=== PATIENT | male | born 1955 | race Caucasian/White ===

== ENCOUNTER → 2019-11-29 16:36 | Outpatient (CLI) | payer MEDICARE, OTHER, SELFPAY ==
--- NOTE | 2019-11-29 16:55 | EKG12_ITS ---
Test Reason : PRE OP Blood Pressure : / mmHG Vent. Rate : 060 BPM Atrial Rate : 060 BPM P-R Int : 168 ms QRS Dur : 096 ms QT Int : 446 ms P-R-T Axes : 058 -01 026 degrees QTc Int : 446 ms Normal sinus rhythm Normal ECG Confirmed by MIKEY GARCIA, KIMBERLY ([id number]), news videotape editor DAKOTA KHAN ([id number]) on 12/03/2019 12:48:01 PM Referred By: Fernando Dwyer Confirmed By:KIMBERLY JENSEN MD
== END ==
PROVIDERS: Family Provider Family Medicine; PCP Family Medicine; Referring Provider Urology; Visit Provider Urology
DX: Z01.812 Encounter for preprocedural laboratory examination (principal)
CPT/HCPCS: 93005

== ENCOUNTER 2023-08-16 11:29 | Day surgery (SDC) | payer MEDICARE, OTHER, SELFPAY ==
--- NOTE | 2023-08-16 11:48 | PCM.HP.STD ---
HPI - General General Date of Service: 08/16/23 Chief Complaint: Obstructing left proximal ureteral calculi HPI Narrative GWYN GARRISON, is a 68 M who presents to my office today with nausea vomiting and severe pain on the left side he has obstructing stone. He said this for several days now and no improvement in symptoms saran proceed with a cystoscopy and left stent placement and then we will plan for lithotripsy at a separate setting. PFSH Home Medications bupropion HCl (smoking deter) 150 mg tablet,12 hr sustained-release(smoking deterrent) 150 mg PO DAILY 10/13/16 [History Last Taken Unknown] paroxetine HCl 10 mg tablet (Paxil) 10 mg PO DAILY 10/13/16 [History Last Taken Unknown] valacyclovir 1 gram tablet 1,000 mg PO PRN PRN COLD SORE 10/13/16 [History Last Taken Unknown] ciprofloxacin HCl 500 mg tablet 500 mg PO BID ##6 10/15/16 [Rx Last Taken Unknown] hydrocodone 5 mg-acetaminophen 300 mg tablet (Vicodin) 1 tab PO Q6H PRN PRN Pain #14 tabs 10/15/16 [Rx Last Taken Unknown] Allergy/AdvReac Type Severity Reaction Status Date / Time No Known Allergies Allergy Verified 10/13/16 14:22 Social History Smoking Status: Former smoker
--- NOTE | 2023-08-16 11:51 | DCINST_ITS ---
Discharge Instructions Diet Discharge Diet: No restrictions Activity Discharge Activity: Return to Normal Activity and May Not Drive (while taking narcotic pain medications.) Dressing / Incision Call your doctor if you observe: Fever of 101 or Higher Follow Up Care Please Follow Up With: Fernando Dwyer MD When: Call [phone] for an appointment Test Results: Test results from this visit will be discussed in further detail at your follow- up appointment, if applicable. Discharge Plan Admission Primary Reason for Your Visit: stent Attending Provider: Fernando Dwyer Primary Care Provider: Carlo Viveros Discharge Orders/Prescriptions Prescriptions: Continued paroxetine HCl [Paxil] 10 MG tablet 10 mg PO DAILY Patient Comments: ANXIETY valacyclovir 1,000 MG tablet 1,000 mg PO PRN PRN (Reason: COLD SORE) bupropion HCl (smoking deter) 150 MG tablet extended release 12 hr 150 mg PO DAILY ciprofloxacin HCl 500 MG tablet 500 mg PO BID Qty: 6 0RF hydrocodone-acetaminophen [Vicodin] 1 EACH tablet 1 tab PO Q6H PRN PRN (Reason: Pain) Qty: 14 0RF Rx Instructions: Referrals / Follow Up: Carlo Viveros DO [Primary Care Provider] - Disposition Disposition (needs filled in before D/C Order can be placed): Home, Self Care
[2023-08-16 11:59] VITALS: BP 151/70; PULSE 56; RESP 16; TEMP 36.4; O2SAT 98; BMI 31.1
[2023-08-16] MEDS: Cefazolin 2 GM in 0.9% Normal Saline (100mL Bag) 100 ML IV (12:17)
--- NOTE | 2023-08-16 12:35 | PCM.OPRPT ---
Report of Operation Pre-Operative Diagnosis: Obstructing left ureteral calculi Post-Operative Diagnosis: The same Surgery/Procedure Performed:: Cystoscopy and left stent placement and retrograde pyelogram Description of Surgical Findings:: Patient was taken back to the operating room after induction of general anesthesia, the patient was placed in dorsolithotomy position. The urethra and genitals were prepped and draped in usual sterile fashion. Using a 21 Belgian rigid cystourethroscope the entire length of the urethra was normal then went into the bladder. Identified the trigone the left and right ureteral orifice. I then cannulated the Left ureteral orifice and advanced a wire up into the kidney. I then backloaded a 5 Belgian open ended catheter over the wire and injected contrast to delineate the anatomy. After the retrograde was performed I then used fluoroscopic images and guidance to advanced a wire up into the kidney and over the 0.038 glidewire I advanced a 6 Belgian by 26 cm double pigtail stent. I then pulled the 0.038 Glidewire off and the stent coiled in the kidney bladder good position. The bladder was then drained. We confirmed the position of the stent by fluoroscopy. Patient anesthetic was reversed and was taken back to the PACU in good condition. Surgeon: Fernando Dwyer Type of Anesthesia: MAC Drains: stent left Estimated Blood Loss (mL): 0 Admit VTE Documentation VTE Present on Admission: No VTE Mechan Device Prophylaxis: SCD's VTE Pharm Prophylaxis ordered?: No
[2023-08-16 12:42] VITALS: BP 133/70; BP 151/70; PULSE 60; RESP 18; TEMP 36.4; O2SAT 96
[2023-08-16 12:45] VITALS: BP 129/73; BP 151/70; PULSE 60; RESP 18; O2SAT 98
[2023-08-16 12:52] VITALS: BP 135/73; BP 151/70; PULSE 64; RESP 18; O2SAT 98
[2023-08-16 12:55] VITALS: BP 134/70; BP 151/70; PULSE 58; RESP 18; TEMP 36.6; O2SAT 95
[2023-08-16 13:27] VITALS: BP 151/70
== END 2023-08-16 13:30 | disposition home or self-care (01) ==
LOC: SDC 11:36 → AC 11:38
PROVIDERS: Referring Provider Urology; Visit Provider Urology
PROC: (CPT 52332; principal; 2023-08-16 16:45)
DX: N20.1 Calculus of ureter (principal); I10 Essential (primary) hypertension; G47.30 Sleep apnea, unspecified; Z87.891 Personal history of nicotine dependence
CPT/HCPCS: 52332; 00910; 76000; J7120; C1769; C2617

== ENCOUNTER 2023-10-23 17:05 | Inpatient (IN) | payer MEDICARE, OTHER, SELFPAY ==
[2023-10-23 17:37] VITALS: BP 114/64; PULSE 84; RESP 17; TEMP 37.3; O2SAT 96; BMI 26.9
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
[2023-10-23] MEDS: Atorvastatin Calcium 10 MG Tablet PO (20:23)
[2023-10-23] MEDS: Methocarbamol 750 MG Tablet PO (20:24)
[2023-10-23] MEDS: MELATONIN 3 MG TABLET 6 MG PO (20:24)
[2023-10-23] MEDS: QUEtiapine 25 MG Tablet 50 MG PO (20:24)
[2023-10-23 20:39] VITALS: BP 129/50; PULSE 93; RESP 16; TEMP 36.3; O2SAT 92
[2023-10-23] MEDS: Arthritis Pain Compound 60 CLICK TUBE TOPICAL (21:47)
[2023-10-24] MEDS: HYDROcodone Bitartrate/Apap 5/325 Tablet PO ×4 (03:14→20:18)
[2023-10-24 06:00] LABS: Hematocrit 34.9 % (40-54); Hemoglobin 10.8 g/dL (13.0-16.5); Mean Corp Hgb Conc 30.9 g/dL (32-36); Mean Corpuscular Hgb 28.1 pg (27.0-32.0); Mean Corpuscular Volume 90.6 fL (80-94); Mean Platelet Vol. 10.3 fl (6.2-12.0); Platelet Count 677 K/mm3 (150-450); RBC Distribution Width CV 13.2 % (11.6-14.6); RBC Distribution Width SD 43.4 fl (35.1-43.9); Red Blood Count 3.85 M/mm3 (4.6-6.2); White Blood Count 11.2 K/mm3 (4.4-11.0)
[2023-10-24 06:25] LABS: ALB/GLOB Ratio 0.7 RATIO (0.9-2.4); AST(SGOT) 23 U/L (15-37); Alanine Aminotransfer ALT/SGPT 27 U/L (16-61); Albumin, Serum 2.9 g/dL (3.2-5.0); Alkaline Phosphatase 550 U/L (45-117); Anion Gap 4 (5-15); BUN 28 mg/dL (7-18); BUN/Creat Ratio 35.9 RATIO (10-20); Calcium,Total 8.8 mg/dL (8.5-10.1); Chloride 108 mmol/L (98-107); Creatinine, Serum 0.78 mg/dL (0.70-1.30); EST Glomerular Filtration Rate 104 mL/min (>60); Est Glom Filt Rate - Afr Amer 126 mL/min (>60); Estimated Creatinine Clearance 77.68 ml/min; Globulin 4.3 g/dL (2.2-4.2); Glucose 115 mg/dL (74-106); Magnesium 2.3 mg/dL (1.6-2.6); Potassium 4.3 mmol/L (3.5-5.1); Protein, Total 7.2 g/dL (6.4-8.2); Sodium Level 140 mmol/L (136-145)
[2023-10-24] MEDS: Methocarbamol 750 MG Tablet PO ×3 (06:39→20:16)
[2023-10-24 07:21] VITALS: BP 119/63; PULSE 84; RESP 16; TEMP 34.8; O2SAT 94
[2023-10-24] MEDS: Venlafaxine XR 37.5 MG Capsule PO (07:50)
[2023-10-24] MEDS: Pantoprazole Sodium 40 MG Tablet PO (07:50)
[2023-10-24] MEDS: Losartan Potassium 50 MG Tablet PO (07:50)
[2023-10-24] MEDS: Senna/Docusate Sodium 1 Tablet 2 TABLET PO ×2 (07:51→20:17)
[2023-10-24] MEDS: Polyethylene Glycol 3350 17 GM PACKET PO (07:52)
[2023-10-24 08:30] VITALS: O2SAT 94
[2023-10-24] MEDS: Arthritis Pain Compound 60 CLICK TUBE TOPICAL ×2 (09:57→20:15)
--- NOTE | 2023-10-24 16:39 | NURSING ---
Dr. Almendarez's office contacted to see if they would oversee his orthopedic care while patient is here and information sent over via fax per their request. Dr. Almendarez is currently out of town and awaiting call back.
[2023-10-24] MEDS: NYSTATIN 500,000 UNIT/5 ML UDC 500000 UNIT PO ×2 (18:12→20:18)
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
[2023-10-24] MEDS: QUEtiapine 25 MG Tablet 50 MG PO (20:16)
[2023-10-24] MEDS: Atorvastatin Calcium 10 MG Tablet PO (20:16)
[2023-10-24] MEDS: MELATONIN 3 MG TABLET 6 MG PO (20:17)
[2023-10-24 21:59] VITALS: BP 120/64; PULSE 80; RESP 17; TEMP 36.7; O2SAT 96
[2023-10-25] MEDS: HYDROcodone Bitartrate/Apap 5/325 Tablet PO ×3 (02:59→21:06)
[2023-10-25] MEDS: Methocarbamol 750 MG Tablet PO ×3 (05:45→21:02)
[2023-10-25 07:10] VITALS: O2SAT 93
[2023-10-25 07:46] VITALS: BP 124/63; PULSE 71; RESP 71; TEMP 36.5; O2SAT 15
[2023-10-25] MEDS: Losartan Potassium 50 MG Tablet PO (08:01)
[2023-10-25] MEDS: Pantoprazole Sodium 40 MG Tablet PO (08:01)
[2023-10-25] MEDS: Venlafaxine XR 37.5 MG Capsule PO (08:01)
[2023-10-25] MEDS: NYSTATIN 500,000 UNIT/5 ML UDC 500000 UNIT PO ×4 (08:01→21:03)
[2023-10-25] MEDS: Senna/Docusate Sodium 1 Tablet 2 TABLET PO ×2 (08:02→21:03)
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
[2023-10-25] MEDS: Arthritis Pain Compound 60 CLICK TUBE TOPICAL ×2 (09:11→21:01)
[2023-10-25] MEDS: Atorvastatin Calcium 10 MG Tablet PO (21:02)
[2023-10-25] MEDS: QUEtiapine 25 MG Tablet 75 MG PO (21:02)
[2023-10-25] MEDS: MELATONIN 3 MG TABLET 6 MG PO (21:03)
[2023-10-25 21:32] VITALS: BP 129/51; PULSE 79; RESP 16; TEMP 36.8; O2SAT 91
[2023-10-26] MEDS: Methocarbamol 750 MG Tablet PO ×3 (05:40→21:35)
[2023-10-26] MEDS: Senna/Docusate Sodium 1 Tablet 2 TABLET PO (07:53)
[2023-10-26] MEDS: Losartan Potassium 50 MG Tablet PO (07:54)
[2023-10-26] MEDS: Venlafaxine XR 37.5 MG Capsule PO (07:54)
[2023-10-26] MEDS: Pantoprazole Sodium 40 MG Tablet PO (07:54)
[2023-10-26] MEDS: HYDROcodone Bitartrate/Apap 5/325 Tablet PO ×2 (07:54→21:35)
[2023-10-26] MEDS: NYSTATIN 500,000 UNIT/5 ML UDC 500000 UNIT PO ×4 (07:58→21:34)
[2023-10-26] MEDS: Arthritis Pain Compound 60 CLICK TUBE TOPICAL ×2 (07:58→21:35)
[2023-10-26 09:17] VITALS: BP 153/61; PULSE 71; RESP 17; TEMP 36.9; O2SAT 93
[2023-10-26] MEDS: Oxycodone/Apap 5/325 Tablet PO ×2 (12:07→17:30)
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
[2023-10-26 19:36] VITALS: BP 110/53; PULSE 75; RESP 18; TEMP 36.5; O2SAT 93
[2023-10-26 21:30] VITALS: PULSE 75; RESP 18; O2SAT 93
[2023-10-26] MEDS: MELATONIN 3 MG TABLET 6 MG PO (21:34)
[2023-10-26] MEDS: Polyethylene Glycol 3350 17 GM PACKET PO (21:35)
[2023-10-26] MEDS: Atorvastatin Calcium 10 MG Tablet PO (21:35)
[2023-10-26] MEDS: QUEtiapine 25 MG Tablet 75 MG PO (21:35)
[2023-10-27] MEDS: HYDROcodone Bitartrate/Apap 5/325 Tablet PO ×3 (05:29→22:24)
[2023-10-27] MEDS: Methocarbamol 750 MG Tablet PO ×3 (05:29→21:27)
--- NOTE | 2023-10-27 05:41 | NURSING ---
pt noted to be disoriented this am, reoriented to time and year. urine was noted to be marvel colored last hs and is tea colored this am. pt encouraged to drink and did drink a glass of water with his am medication
[2023-10-27 06:14] VITALS: O2SAT 94
[2023-10-27 07:54] VITALS: BP 127/64; PULSE 81; RESP 16; TEMP 36.3; O2SAT 95
--- NOTE | 2023-10-27 08:46 | CASEMGMT ---
Social Work IDT met with patient, SO and dtr for Team meeting. Discussed patient's progress in PT/OT/ST/SN. Educated to Medicare approval of 18 days with DC 11/10. Pt is unable to maintain NWB on leg and transfers are slideboard. Pt's goal is to return home with SO. SO does work full-time, but unsure about home at time of DC d/t to physical and cognitive abilities. Briefly explained the options would be home with assist or SNF for continued therapy under Medicare coverage. Dtr did express some concern with home as pt only has half bath on first floor and bed/full bath is on the second floor. PT recommending ramp to enter home. Dtr agreed. SW will continue to follow for DC planning. Will ReTeam next week. Maria Eugenia Russell MASTER [employer]
[2023-10-27] MEDS: Arthritis Pain Compound 60 CLICK TUBE TOPICAL ×2 (09:50→21:26)
[2023-10-27] MEDS: Losartan Potassium 50 MG Tablet PO (09:51)
[2023-10-27] MEDS: Venlafaxine XR 37.5 MG Capsule PO (09:51)
[2023-10-27] MEDS: Senna/Docusate Sodium 1 Tablet 2 TABLET PO ×2 (09:51→21:25)
[2023-10-27] MEDS: Pantoprazole Sodium 40 MG Tablet PO (09:51)
[2023-10-27] MEDS: NYSTATIN 500,000 UNIT/5 ML UDC 500000 UNIT PO ×4 (09:51→21:44)
[2023-10-27] MEDS: Polyethylene Glycol 3350 17 GM PACKET PO ×2 (09:51→21:25)
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
[2023-10-27] MEDS: Oxycodone/Apap 5/325 Tablet PO (11:17)
[2023-10-27] MEDS: hydrOXYzine 10 MG Tablet PO (12:13)
[2023-10-27] MEDS: Psyllium 1 PACKET PO (13:36)
[2023-10-27 21:00] VITALS: BP 110/58; PULSE 73; RESP 16; TEMP 37.3; O2SAT 98
[2023-10-27] MEDS: QUEtiapine 25 MG Tablet 75 MG PO (21:25)
[2023-10-27] MEDS: MELATONIN 3 MG TABLET 6 MG PO (21:26)
[2023-10-27] MEDS: Atorvastatin Calcium 10 MG Tablet PO (21:26)
[2023-10-28 06:00] VITALS: BMI 26.8
[2023-10-28] MEDS: HYDROcodone Bitartrate/Apap 5/325 Tablet PO ×3 (06:22→22:08)
[2023-10-28] MEDS: Methocarbamol 750 MG Tablet PO ×3 (06:23→22:07)
[2023-10-28] MEDS: Magnesium Hydroxide 30 ML UDC PO (06:23)
[2023-10-28] MEDS: Azelastine HCl NASAL.SRY 1 SPRAY NASAL (08:48)
[2023-10-28] MEDS: Senna/Docusate Sodium 1 Tablet 2 TABLET PO ×2 (08:50→22:08)
[2023-10-28] MEDS: Venlafaxine XR 37.5 MG Capsule PO (08:50)
[2023-10-28] MEDS: Arthritis Pain Compound 60 CLICK TUBE TOPICAL ×2 (08:50→22:09)
[2023-10-28] MEDS: Pantoprazole Sodium 40 MG Tablet PO (08:50)
[2023-10-28] MEDS: NYSTATIN 500,000 UNIT/5 ML UDC 500000 UNIT PO ×4 (08:50→22:09)
[2023-10-28] MEDS: Polyethylene Glycol 3350 17 GM PACKET PO ×2 (08:51→22:09)
[2023-10-28] MEDS: Losartan Potassium 50 MG Tablet PO (08:51)
[2023-10-28] MEDS: Fluticasone 0.05% 1 SPRAY NASAL.SRY NASAL (08:51)
[2023-10-28] MEDS: Psyllium 1 PACKET PO (08:51)
[2023-10-28 09:19] VITALS: BP 129/52; PULSE 58; RESP 17; TEMP 35.7; O2SAT 94
--- NOTE | 2023-10-28 13:03 | NURSING ---
20 johnathon removed and 1 suture pt tolerated well and resting.
[2023-10-28 22:00] VITALS: BP 106/49; PULSE 83; RESP 20; TEMP 36.8; O2SAT 92
[2023-10-28] MEDS: Atorvastatin Calcium 10 MG Tablet PO (22:07)
[2023-10-28] MEDS: QUEtiapine 25 MG Tablet 75 MG PO (22:07)
[2023-10-28] MEDS: MELATONIN 3 MG TABLET 6 MG PO (22:10)
[2023-10-29] MEDS: Methocarbamol 750 MG Tablet PO ×3 (06:28→20:24)
[2023-10-29] MEDS: HYDROcodone Bitartrate/Apap 5/325 Tablet PO ×3 (06:36→20:25)
[2023-10-29 07:46] VITALS: BP 136/53; PULSE 61; RESP 16; TEMP 36.8; O2SAT 94
[2023-10-29] MEDS: NYSTATIN 500,000 UNIT/5 ML UDC 500000 UNIT PO ×4 (08:38→20:26)
[2023-10-29] MEDS: Psyllium 1 PACKET PO (08:38)
[2023-10-29] MEDS: Venlafaxine XR 37.5 MG Capsule PO (08:39)
[2023-10-29] MEDS: Azelastine HCl NASAL.SRY 1 SPRAY NASAL (08:39)
[2023-10-29] MEDS: Fluticasone 0.05% 1 SPRAY NASAL.SRY NASAL (08:39)
[2023-10-29] MEDS: Senna/Docusate Sodium 1 Tablet 2 TABLET PO ×2 (08:39→20:24)
[2023-10-29] MEDS: Arthritis Pain Compound 60 CLICK TUBE TOPICAL ×2 (08:40→20:24)
[2023-10-29] MEDS: Polyethylene Glycol 3350 17 GM PACKET PO ×2 (08:40→20:24)
[2023-10-29] MEDS: Pantoprazole Sodium 40 MG Tablet PO (08:40)
[2023-10-29] MEDS: Losartan Potassium 50 MG Tablet PO (08:41)
[2023-10-29 11:47] VITALS: O2SAT 96
[2023-10-29] MEDS: Oxycodone/Apap 5/325 Tablet PO (11:57)
[2023-10-29] MEDS: QUEtiapine 25 MG Tablet 75 MG PO (20:24)
[2023-10-29] MEDS: MELATONIN 3 MG TABLET 6 MG PO (20:24)
[2023-10-29] MEDS: Atorvastatin Calcium 10 MG Tablet PO (20:24)
[2023-10-29 20:30] VITALS: BP 120/54; PULSE 70; RESP 16; RESP 18; TEMP 36.7; O2SAT 92
[2023-10-30] MEDS: HYDROcodone Bitartrate/Apap 5/325 Tablet PO ×3 (05:46→22:04)
[2023-10-30] MEDS: Methocarbamol 750 MG Tablet PO ×3 (05:46→22:03)
[2023-10-30 09:01] VITALS: BP 128/61; PULSE 72; RESP 18; TEMP 36.3; O2SAT 96
[2023-10-30] MEDS: Fluticasone 0.05% 1 SPRAY NASAL.SRY NASAL (09:19)
[2023-10-30] MEDS: Azelastine HCl NASAL.SRY 1 SPRAY NASAL (09:20)
[2023-10-30] MEDS: Psyllium 1 PACKET PO (09:20)
[2023-10-30] MEDS: Polyethylene Glycol 3350 17 GM PACKET PO ×2 (09:20→22:03)
[2023-10-30] MEDS: Arthritis Pain Compound 60 CLICK TUBE TOPICAL ×2 (09:20→22:05)
[2023-10-30] MEDS: NYSTATIN 500,000 UNIT/5 ML UDC 500000 UNIT PO ×4 (09:21→22:03)
[2023-10-30] MEDS: Venlafaxine XR 37.5 MG Capsule PO (09:22)
[2023-10-30] MEDS: Pantoprazole Sodium 40 MG Tablet PO (09:22)
[2023-10-30] MEDS: Senna/Docusate Sodium 1 Tablet 2 TABLET PO ×2 (09:22→22:04)
[2023-10-30] MEDS: Losartan Potassium 50 MG Tablet PO (09:23)
[2023-10-30] MEDS: Oxycodone/Apap 5/325 Tablet PO ×2 (13:46→17:49)
[2023-10-30 22:00] VITALS: BP 122/59; PULSE 66; RESP 18; TEMP 36.7; O2SAT 93
[2023-10-30] MEDS: QUEtiapine 25 MG Tablet 75 MG PO (22:03)
[2023-10-30] MEDS: MELATONIN 3 MG TABLET 6 MG PO (22:03)
[2023-10-30] MEDS: Atorvastatin Calcium 10 MG Tablet PO (22:04)
[2023-10-31] MEDS: Methocarbamol 750 MG Tablet PO ×3 (05:55→21:32)
[2023-10-31] MEDS: HYDROcodone Bitartrate/Apap 5/325 Tablet PO ×3 (05:55→21:46)
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
[2023-10-31 08:00] VITALS: BP 138/65; PULSE 66; RESP 16; TEMP 36.9; O2SAT 95
[2023-10-31] MEDS: Arthritis Pain Compound 60 CLICK TUBE TOPICAL ×2 (09:47→21:31)
[2023-10-31] MEDS: Gabapentin 100 MG Capsule PO ×3 (09:47→17:18)
[2023-10-31] MEDS: Azelastine HCl NASAL.SRY 1 SPRAY NASAL (09:47)
[2023-10-31] MEDS: Venlafaxine XR 37.5 MG Capsule PO (09:48)
[2023-10-31] MEDS: Pantoprazole Sodium 40 MG Tablet PO (09:48)
[2023-10-31] MEDS: Polyethylene Glycol 3350 17 GM PACKET PO ×2 (09:48→21:32)
[2023-10-31] MEDS: Senna/Docusate Sodium 1 Tablet 2 TABLET PO ×2 (09:48→21:31)
[2023-10-31] MEDS: Psyllium 1 PACKET PO (09:48)
[2023-10-31] MEDS: Losartan Potassium 50 MG Tablet PO (09:48)
[2023-10-31] MEDS: NYSTATIN 500,000 UNIT/5 ML UDC 500000 UNIT PO ×4 (09:49→21:31)
[2023-10-31] MEDS: Fluticasone 0.05% 1 SPRAY NASAL.SRY NASAL (09:49)
[2023-10-31 10:00] VITALS: RESP 16; O2SAT 94
--- NOTE | 2023-10-31 11:05 | NURSING ---
received call for Carol at Dr Snell's office. Dr Almendarez has agreed to take pt as a patient.
[2023-10-31] MEDS: Oxycodone/Apap 5/325 Tablet PO (13:56)
[2023-10-31 21:20] VITALS: BP 123/60; PULSE 78; RESP 20; TEMP 36.8; O2SAT 94; O2SAT 97
[2023-10-31] MEDS: QUEtiapine 25 MG Tablet 75 MG PO (21:31)
[2023-10-31] MEDS: Atorvastatin Calcium 10 MG Tablet PO (21:32)
[2023-10-31] MEDS: MELATONIN 3 MG TABLET 6 MG PO (21:32)
[2023-11-01] MEDS: Methocarbamol 750 MG Tablet PO ×3 (05:54→21:59)
[2023-11-01] MEDS: HYDROcodone Bitartrate/Apap 5/325 Tablet PO ×2 (05:55→22:06)
[2023-11-01 07:49] VITALS: BP 119/53; PULSE 76; RESP 17; TEMP 36.7; O2SAT 97
[2023-11-01] MEDS: Pantoprazole Sodium 40 MG Tablet PO (08:12)
[2023-11-01] MEDS: Polyethylene Glycol 3350 17 GM PACKET PO (08:12)
[2023-11-01] MEDS: Fluticasone 0.05% 1 SPRAY NASAL.SRY NASAL (08:12)
[2023-11-01] MEDS: Psyllium 1 PACKET PO (08:12)
[2023-11-01] MEDS: NYSTATIN 500,000 UNIT/5 ML UDC 500000 UNIT PO ×4 (08:12→22:00)
[2023-11-01] MEDS: Senna/Docusate Sodium 1 Tablet 2 TABLET PO ×2 (08:12→21:59)
[2023-11-01] MEDS: Losartan Potassium 50 MG Tablet PO (08:12)
[2023-11-01] MEDS: Gabapentin 100 MG Capsule PO ×3 (08:12→16:52)
[2023-11-01] MEDS: Venlafaxine XR 37.5 MG Capsule PO (08:12)
[2023-11-01] MEDS: Arthritis Pain Compound 60 CLICK TUBE TOPICAL ×2 (08:13→21:58)
[2023-11-01] MEDS: Azelastine HCl NASAL.SRY 1 SPRAY NASAL (08:13)
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
[2023-11-01] MEDS: Oxycodone/Apap 5/325 Tablet PO (11:44)
[2023-11-01] MEDS: hydrOXYzine 10 MG Tablet PO (11:50)
[2023-11-01] MEDS: Tamsulosin HCl 0.4 MG Capsule PO (16:52)
[2023-11-01 20:23] VITALS: BP 117/56; PULSE 72; RESP 20; TEMP 36.7; O2SAT 92
[2023-11-01] MEDS: Atorvastatin Calcium 10 MG Tablet PO (21:58)
[2023-11-01] MEDS: MELATONIN 3 MG TABLET 6 MG PO (21:59)
[2023-11-01] MEDS: QUEtiapine 25 MG Tablet 75 MG PO (22:01)
[2023-11-02] MEDS: Methocarbamol 750 MG Tablet PO ×3 (05:26→21:47)
[2023-11-02] MEDS: Oxycodone/Apap 5/325 Tablet PO (05:27)
[2023-11-02] MEDS: Azelastine HCl NASAL.SRY 1 SPRAY NASAL (08:16)
[2023-11-02] MEDS: Fluticasone 0.05% 1 SPRAY NASAL.SRY NASAL (08:16)
[2023-11-02] MEDS: Losartan Potassium 50 MG Tablet PO (08:17)
[2023-11-02] MEDS: Pantoprazole Sodium 40 MG Tablet PO (08:17)
[2023-11-02] MEDS: Gabapentin 100 MG Capsule PO ×3 (08:17→18:13)
[2023-11-02] MEDS: Venlafaxine XR 37.5 MG Capsule PO (08:17)
[2023-11-02] MEDS: NYSTATIN 500,000 UNIT/5 ML UDC 500000 UNIT PO ×4 (08:17→21:47)
[2023-11-02] MEDS: Arthritis Pain Compound 60 CLICK TUBE TOPICAL ×2 (08:19→21:48)
[2023-11-02 08:59] VITALS: BP 113/54; PULSE 65; RESP 18; TEMP 37; O2SAT 94
[2023-11-02] MEDS: HYDROcodone Bitartrate/Apap 5/325 Tablet PO ×2 (13:56→21:47)
[2023-11-02] MEDS: Tamsulosin HCl 0.4 MG Capsule PO (18:09)
[2023-11-02 19:18] VITALS: BP 108/65; PULSE 68; RESP 14; TEMP 37.3; O2SAT 94
[2023-11-02] MEDS: Atorvastatin Calcium 10 MG Tablet PO (21:47)
[2023-11-02] MEDS: QUEtiapine 25 MG Tablet 75 MG PO (21:47)
[2023-11-02] MEDS: MELATONIN 3 MG TABLET 6 MG PO (21:47)
[2023-11-03] MEDS: Methocarbamol 750 MG Tablet PO ×3 (05:12→21:05)
[2023-11-03] MEDS: Psyllium 1 PACKET PO (08:18)
[2023-11-03] MEDS: Azelastine HCl NASAL.SRY 1 SPRAY NASAL (08:18)
[2023-11-03] MEDS: Fluticasone 0.05% 1 SPRAY NASAL.SRY NASAL (08:18)
[2023-11-03] MEDS: Arthritis Pain Compound 60 CLICK TUBE TOPICAL ×2 (08:18→21:06)
[2023-11-03] MEDS: Gabapentin 100 MG Capsule PO ×3 (08:18→16:48)
[2023-11-03] MEDS: Losartan Potassium 50 MG Tablet PO (08:19)
[2023-11-03] MEDS: Pantoprazole Sodium 40 MG Tablet PO (08:19)
[2023-11-03] MEDS: Venlafaxine XR 37.5 MG Capsule PO (08:19)
[2023-11-03] MEDS: NYSTATIN 500,000 UNIT/5 ML UDC 500000 UNIT PO ×4 (08:19→21:06)
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
--- NOTE | 2023-11-03 08:53 | CASEMGMT ---
Social Work IDT met with patient, SO and dtr for Team meeting. Discussed patient's progress in PT/OT/ST/SN. Educated to Medicare approval of 16 days with DC 11/10. IDT recommending SNF at DC. Inquired to pt and family of DC plans. Family and pt agreeable to SNF for continued therapy care. SW provided printed list of skilled SNF list with quality and resource data via [employer]. Family to decide on choices and notify this worker. SW educated to SNF Medicare benefit. SW will continue to follow. Plan: DC to SNF, skilled 11/10 MICHAEL Walker
[2023-11-03 09:45] VITALS: BP 119/63; PULSE 81; RESP 16; TEMP 37; O2SAT 93
[2023-11-03] MEDS: Oxycodone/Apap 5/325 Tablet PO ×2 (11:12→19:38)
[2023-11-03] MEDS: HYDROcodone Bitartrate/Apap 5/325 Tablet PO ×2 (13:52→21:05)
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
--- NOTE | 2023-11-03 16:06 | NURSING ---
Liss for orthopedic Dr Alston office to cancel appt for 11/04 at 1030.
[2023-11-03] MEDS: Tamsulosin HCl 0.4 MG Capsule PO (16:48)
[2023-11-03] MEDS: MELATONIN 3 MG TABLET 6 MG PO (21:05)
[2023-11-03] MEDS: Atorvastatin Calcium 10 MG Tablet PO (21:05)
[2023-11-03] MEDS: QUEtiapine 25 MG Tablet 75 MG PO (21:05)
[2023-11-03 21:23] VITALS: BP 112/60; PULSE 83; RESP 20; TEMP 36.2; O2SAT 96
[2023-11-03 22:00] VITALS: PULSE 83; RESP 20; O2SAT 96
[2023-11-04 06:00] VITALS: BMI 26.8
[2023-11-04] MEDS: Methocarbamol 750 MG Tablet PO ×3 (06:17→22:09)
[2023-11-04] MEDS: Gabapentin 100 MG Capsule PO ×3 (08:56→18:23)
[2023-11-04] MEDS: Arthritis Pain Compound 60 CLICK TUBE TOPICAL ×2 (08:56→22:09)
[2023-11-04] MEDS: Azelastine HCl NASAL.SRY 1 SPRAY NASAL (08:58)
[2023-11-04] MEDS: Psyllium 1 PACKET PO (08:59)
[2023-11-04] MEDS: Venlafaxine XR 37.5 MG Capsule PO (08:59)
[2023-11-04] MEDS: Fluticasone 0.05% 1 SPRAY NASAL.SRY NASAL (08:59)
[2023-11-04] MEDS: Losartan Potassium 50 MG Tablet PO (08:59)
[2023-11-04] MEDS: Pantoprazole Sodium 40 MG Tablet PO (09:00)
[2023-11-04] MEDS: Oxycodone/Apap 5/325 Tablet PO ×3 (09:00→19:21)
[2023-11-04] MEDS: NYSTATIN 500,000 UNIT/5 ML UDC 500000 UNIT PO ×4 (09:00→22:09)
[2023-11-04 10:00] VITALS: BP 136/52; PULSE 61; RESP 16; TEMP 36.5; O2SAT 93
[2023-11-04] MEDS: Tamsulosin HCl 0.4 MG Capsule PO (18:24)
[2023-11-04 20:00] VITALS: BP 112/48; PULSE 76; RESP 17; TEMP 35.6; O2SAT 95
[2023-11-04] MEDS: QUEtiapine 25 MG Tablet 75 MG PO (22:09)
[2023-11-04] MEDS: MELATONIN 3 MG TABLET 6 MG PO (22:09)
[2023-11-04] MEDS: HYDROcodone Bitartrate/Apap 5/325 Tablet PO (22:09)
[2023-11-04] MEDS: Atorvastatin Calcium 10 MG Tablet PO (22:09)
[2023-11-05] MEDS: Methocarbamol 750 MG Tablet PO ×3 (06:48→21:10)
[2023-11-05 08:00] VITALS: BP 125/51; PULSE 60; RESP 18; TEMP 36.4; O2SAT 95
[2023-11-05] MEDS: Arthritis Pain Compound 60 CLICK TUBE TOPICAL ×2 (08:03→21:08)
[2023-11-05] MEDS: Psyllium 1 PACKET PO (08:03)
[2023-11-05] MEDS: Gabapentin 100 MG Capsule PO ×3 (08:03→16:25)
[2023-11-05] MEDS: Fluticasone 0.05% 1 SPRAY NASAL.SRY NASAL (08:04)
[2023-11-05] MEDS: Azelastine HCl NASAL.SRY 1 SPRAY NASAL (08:04)
[2023-11-05] MEDS: Losartan Potassium 50 MG Tablet PO (08:06)
[2023-11-05] MEDS: Pantoprazole Sodium 40 MG Tablet PO (08:06)
[2023-11-05] MEDS: NYSTATIN 500,000 UNIT/5 ML UDC 500000 UNIT PO ×4 (08:07→21:08)
[2023-11-05] MEDS: Venlafaxine XR 37.5 MG Capsule PO (08:08)
[2023-11-05] MEDS: HYDROcodone Bitartrate/Apap 5/325 Tablet PO ×2 (12:10→21:08)
[2023-11-05] MEDS: Tamsulosin HCl 0.4 MG Capsule PO (16:25)
[2023-11-05] MEDS: Senna/Docusate Sodium 1 Tablet 2 TABLET PO (21:10)
[2023-11-05] MEDS: Atorvastatin Calcium 10 MG Tablet PO (21:10)
[2023-11-05] MEDS: QUEtiapine 25 MG Tablet 75 MG PO (21:11)
[2023-11-05] MEDS: MELATONIN 3 MG TABLET 6 MG PO (21:12)
[2023-11-05 21:30] VITALS: BP 143/69; PULSE 67; RESP 16; TEMP 36.2; O2SAT 93
[2023-11-06] MEDS: Methocarbamol 750 MG Tablet PO ×3 (05:28→21:47)
[2023-11-06 08:25] VITALS: BP 131/60; PULSE 69; RESP 16; TEMP 36.7; O2SAT 92
[2023-11-06] MEDS: Gabapentin 100 MG Capsule PO ×3 (08:36→17:14)
[2023-11-06] MEDS: Arthritis Pain Compound 60 CLICK TUBE TOPICAL ×2 (08:36→21:46)
[2023-11-06] MEDS: Azelastine HCl NASAL.SRY 1 SPRAY NASAL (08:37)
[2023-11-06] MEDS: Losartan Potassium 50 MG Tablet PO (08:38)
[2023-11-06] MEDS: Venlafaxine XR 37.5 MG Capsule PO (08:38)
[2023-11-06] MEDS: Psyllium 1 PACKET PO (08:38)
[2023-11-06] MEDS: Fluticasone 0.05% 1 SPRAY NASAL.SRY NASAL (08:38)
[2023-11-06] MEDS: Pantoprazole Sodium 40 MG Tablet PO (08:39)
[2023-11-06] MEDS: Oxycodone/Apap 5/325 Tablet PO (08:39)
[2023-11-06] MEDS: NYSTATIN 500,000 UNIT/5 ML UDC 500000 UNIT PO ×2 (08:39→13:51)
[2023-11-06] MEDS: Senna/Docusate Sodium 1 Tablet 2 TABLET PO ×2 (08:39→21:48)
[2023-11-06] MEDS: HYDROcodone Bitartrate/Apap 5/325 Tablet PO ×2 (12:28→21:47)
[2023-11-06] MEDS: Tamsulosin HCl 0.4 MG Capsule PO (17:14)
[2023-11-06 20:51] VITALS: BP 140/60; PULSE 74; RESP 17; TEMP 37.2; O2SAT 94
[2023-11-06] MEDS: MELATONIN 3 MG TABLET 6 MG PO (21:47)
[2023-11-06] MEDS: Atorvastatin Calcium 10 MG Tablet PO (21:47)
[2023-11-06] MEDS: QUEtiapine 25 MG Tablet 75 MG PO (21:47)
[2023-11-06] MEDS: Polyethylene Glycol 3350 17 GM PACKET PO (21:48)
[2023-11-07] MEDS: HYDROcodone Bitartrate/Apap 5/325 Tablet PO ×2 (06:16→21:32)
[2023-11-07] MEDS: Methocarbamol 750 MG Tablet PO ×3 (06:17→21:32)
[2023-11-07 07:36] VITALS: BP 117/59; PULSE 88; RESP 18; TEMP 36.4; O2SAT 93
[2023-11-07] MEDS: Arthritis Pain Compound 60 CLICK TUBE TOPICAL ×2 (08:38→21:31)
[2023-11-07] MEDS: Gabapentin 100 MG Capsule PO (08:38)
[2023-11-07] MEDS: Senna/Docusate Sodium 1 Tablet 2 TABLET PO ×2 (08:39→21:32)
[2023-11-07] MEDS: Pantoprazole Sodium 40 MG Tablet PO (08:39)
[2023-11-07] MEDS: Venlafaxine XR 37.5 MG Capsule PO (08:39)
[2023-11-07] MEDS: Psyllium 1 PACKET PO (08:40)
[2023-11-07] MEDS: Fluticasone 0.05% 1 SPRAY NASAL.SRY NASAL (08:40)
[2023-11-07] MEDS: Azelastine HCl NASAL.SRY 1 SPRAY NASAL (08:40)
[2023-11-07] MEDS: Losartan Potassium 50 MG Tablet PO (08:40)
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
[2023-11-07] MEDS: Oxycodone/Apap 5/325 Tablet PO (12:06)
[2023-11-07] MEDS: Gabapentin 100 MG Capsule 200 MG PO ×2 (12:07→16:57)
[2023-11-07] MEDS: Tamsulosin HCl 0.4 MG Capsule PO (16:57)
[2023-11-07] MEDS: Atorvastatin Calcium 10 MG Tablet PO (21:32)
[2023-11-07] MEDS: MELATONIN 3 MG TABLET 6 MG PO (21:32)
[2023-11-07] MEDS: QUEtiapine 25 MG Tablet 75 MG PO (21:33)
[2023-11-07 22:00] VITALS: BP 138/66; PULSE 92; RESP 16; TEMP 37.1; O2SAT 93
[2023-11-08] MEDS: Methocarbamol 750 MG Tablet PO ×3 (04:55→21:24)
[2023-11-08] MEDS: Oxycodone/Apap 5/325 Tablet PO ×2 (04:55→23:00)
[2023-11-08 06:02] LABS: Absolute Lymphocyte Count 2.21 X10^3/uL (0.83-4.51); Absolute Neutrophil Count 11.4 X10^3/uL (2.0-7.7); Basophil# 0.05 X10^3/uL; Basophil% 0.3 % (0-1); Eosinophil# 0.05 X10^3/uL; Eosinophils% 0.3 % (0-5); Hematocrit 33.2 % (40-54); Hemoglobin 10.1 g/dL (13.0-16.5); Lymphocyte # 2.21 X10^3/ul (0.83-4.51); Lymphocyte % 14.7 % (19-41); Mean Corp Hgb Conc 30.4 g/dL (32-36); Mean Corpuscular Hgb 27.7 pg (27.0-32.0); Mean Platelet Vol. 11.1 fl (6.2-12.0); Monocyte# 1.22 X10^3/uL; Monocyte% 8.1 % (0-10); NRBC Flagged by Analyzer 0 % (0-5); Neutrophil # 11.38 X10^3/uL (2.7-7.7); Platelet Count 229 K/mm3 (150-450); RBC Distribution Width SD 46.5 fl (35.1-43.9); Red Blood Count 3.65 M/mm3 (4.6-6.2)
[2023-11-08 06:29] LABS: ALB/GLOB Ratio 0.7 RATIO (0.9-2.4); AST(SGOT) 16 U/L (15-37); Alanine Aminotransfer ALT/SGPT 24 U/L (16-61); Albumin, Serum 2.9 g/dL (3.2-5.0); Alkaline Phosphatase 306 U/L (45-117); Anion Gap 5 (5-15); BUN 18 mg/dL (7-18); BUN/Creat Ratio 21.1 RATIO (10-20); Calcium,Total 8.7 mg/dL (8.5-10.1); Chloride 102 mmol/L (98-107); Creatinine, Serum 0.86 mg/dL (0.70-1.30); EST Glomerular Filtration Rate 94 mL/min (>60); Est Glom Filt Rate - Afr Amer 114 mL/min (>60); Estimated Creatinine Clearance 90.33 ml/min; Glucose 118 mg/dL (74-106); Potassium 3.8 mmol/L (3.5-5.1); Protein, Total 6.9 g/dL (6.4-8.2); Sodium Level 137 mmol/L (136-145)
[2023-11-08] MEDS: Losartan Potassium 50 MG Tablet PO (08:01)
[2023-11-08] MEDS: Venlafaxine XR 37.5 MG Capsule PO (08:01)
[2023-11-08] MEDS: Pantoprazole Sodium 40 MG Tablet PO (08:01)
[2023-11-08] MEDS: Fluticasone 0.05% 1 SPRAY NASAL.SRY NASAL (08:01)
[2023-11-08] MEDS: Senna/Docusate Sodium 1 Tablet 2 TABLET PO ×2 (08:01→21:24)
[2023-11-08] MEDS: Arthritis Pain Compound 60 CLICK TUBE TOPICAL ×2 (08:02→21:24)
[2023-11-08] MEDS: Azelastine HCl NASAL.SRY 1 SPRAY NASAL (08:02)
[2023-11-08] MEDS: Polyethylene Glycol 3350 17 GM PACKET PO (08:03)
[2023-11-08] MEDS: Gabapentin 100 MG Capsule 200 MG PO ×3 (08:05→17:32)
[2023-11-08 09:18] VITALS: BP 131/60; PULSE 87; RESP 18; TEMP 36.4; O2SAT 97
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
[2023-11-08 12:03] LABS: Bedside Glucose 145 mg/dL (74-106)
[2023-11-08] MEDS: Acetaminophen 325 MG Tablet 650 MG PO (15:46)
--- NOTE | 2023-11-08 16:10 | CASEMGMT ---
Social Work Received email from dtr stating [facility] is [facility]. SW updated all SNFs via [employer]. SW scheduled w/c transport via [facility] for 1100. 7000 started. Plan: DC 11/10 to [facility], skilled. Maria Eugenia Russell, TUBE FILLER DEMURRAGE AGENT
[2023-11-08] MEDS: Tamsulosin HCl 0.4 MG Capsule PO (17:32)
[2023-11-08 19:39] VITALS: BP 136/64; PULSE 86; RESP 16; TEMP 37.5; O2SAT 94
[2023-11-08] MEDS: QUEtiapine 25 MG Tablet 75 MG PO (21:24)
[2023-11-08] MEDS: Atorvastatin Calcium 10 MG Tablet PO (21:24)
[2023-11-08] MEDS: MELATONIN 3 MG TABLET 6 MG PO (21:24)
[2023-11-08] MEDS: HYDROcodone Bitartrate/Apap 5/325 Tablet PO (21:24)
[2023-11-09] MEDS: Methocarbamol 750 MG Tablet PO ×3 (05:37→21:39)
[2023-11-09 06:10] LABS: Mucous, Urine 0 SEEN /hpf (<or=2+); Red Blood Cells-Urine 0 SEEN /hpf (0-5); Squamous Epithelial Cells - UA 0 SEEN /hpf (0-5)
[2023-11-09 06:15] LABS: Color, Urine Yellow (Yellow); Glucose, Dipstick Normal (Normal); Ketone-Dipstick Negative (Negative); Leukocyte Esterase-Dipstick 500 /ul (Negative); Nitrite-Dipstick Positive (Negative); Occult Blood-Urine 25 /ul (Negative); Protein-Dipstick 30 mg/dl (Negative); Urine Bilirubin Dipstick Negative (Negative); Urine Clarity Clear (Clear); Urine Urobilinogen Normal (Normal)
[2023-11-09 06:24] LABS: Bacteria 2+ /hpf (None Seen); White Blood Cells 10-25 SEEN /hpf (0-5)
[2023-11-09 07:10] VITALS: BP 113/53; PULSE 76; RESP 18; TEMP 36.9; O2SAT 93
[2023-11-09] MEDS: Gabapentin 100 MG Capsule 200 MG PO ×3 (08:02→17:03)
[2023-11-09] MEDS: Arthritis Pain Compound 60 CLICK TUBE TOPICAL ×2 (08:02→21:44)
[2023-11-09] MEDS: Fluticasone 0.05% 1 SPRAY NASAL.SRY NASAL (08:03)
[2023-11-09] MEDS: Azelastine HCl NASAL.SRY 1 SPRAY NASAL (08:03)
[2023-11-09] MEDS: Psyllium 1 PACKET PO (08:03)
[2023-11-09] MEDS: Losartan Potassium 50 MG Tablet PO (08:04)
[2023-11-09] MEDS: Pantoprazole Sodium 40 MG Tablet PO (08:04)
[2023-11-09] MEDS: Senna/Docusate Sodium 1 Tablet 2 TABLET PO ×2 (08:04→21:33)
[2023-11-09] MEDS: Venlafaxine XR 37.5 MG Capsule PO (08:04)
[2023-11-09] MEDS: Cefdinir 300 MG Capsule PO ×2 (09:39→21:33)
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
[2023-11-09] MEDS: HYDROcodone Bitartrate/Apap 5/325 Tablet PO ×2 (15:10→21:37)
[2023-11-09] MEDS: Tamsulosin HCl 0.4 MG Capsule PO (17:03)
[2023-11-09 19:29] VITALS: BP 121/57; PULSE 83; RESP 16; TEMP 36.8; O2SAT 94
[2023-11-09] MEDS: Polyethylene Glycol 3350 17 GM PACKET PO (21:33)
[2023-11-09] MEDS: QUEtiapine 25 MG Tablet 75 MG PO (21:33)
[2023-11-09] MEDS: Atorvastatin Calcium 10 MG Tablet PO (21:39)
[2023-11-09] MEDS: MELATONIN 3 MG TABLET 6 MG PO (21:39)
[2023-11-09 22:00] VITALS: PULSE 84; RESP 16; O2SAT 94
[2023-11-10] MEDS: Methocarbamol 750 MG Tablet PO (06:18)
[2023-11-10] MEDS: Acetaminophen 325 MG Tablet 650 MG PO (06:22)
[2023-11-10 07:58] VITALS: BP 121/58; PULSE 84; RESP 14; TEMP 36.6; O2SAT 95
[2023-11-10] MEDS: Losartan Potassium 50 MG Tablet PO (08:12)
[2023-11-10] MEDS: Senna/Docusate Sodium 1 Tablet 2 TABLET PO (08:12)
[2023-11-10] MEDS: Venlafaxine XR 37.5 MG Capsule PO (08:12)
[2023-11-10] MEDS: Cefdinir 300 MG Capsule PO (08:12)
[2023-11-10] MEDS: Arthritis Pain Compound 60 CLICK TUBE TOPICAL (08:12)
[2023-11-10] MEDS: Azelastine HCl NASAL.SRY 1 SPRAY NASAL (08:12)
[2023-11-10] MEDS: Fluticasone 0.05% 1 SPRAY NASAL.SRY NASAL (08:12)
[2023-11-10] MEDS: Psyllium 1 PACKET PO (08:12)
[2023-11-10] MEDS: Pantoprazole Sodium 40 MG Tablet PO (08:12)
[2023-11-10] MEDS: Gabapentin 100 MG Capsule 200 MG PO (08:19)
[2023-11-10 08:53] LABS: Absolute Lymphocyte Count 1.27 X10^3/uL (0.83-4.51); Absolute Neutrophil Count 5.2 X10^3/uL (2.0-7.7); Basophil# 0.05 X10^3/uL; Basophil% 0.7 % (0-1); Eosinophil# 0.11 X10^3/uL; Eosinophils% 1.5 % (0-5); Hematocrit 31.3 % (40-54); Hemoglobin 9.5 g/dL (13.0-16.5); Lymphocyte # 1.27 X10^3/ul (0.83-4.51); Lymphocyte % 17.8 % (19-41); Mean Corp Hgb Conc 30.4 g/dL (32-36); Mean Corpuscular Volume 88.9 fL (80-94); Mean Platelet Vol. 10.6 fl (6.2-12.0); Monocyte# 0.43 X10^3/uL; NRBC Flagged by Analyzer 0 % (0-5); Neutrophil # 5.24 X10^3/uL (2.7-7.7); Neutrophil % 73.7 % (47-70); Platelet Count 216 K/mm3 (150-450); RBC Distribution Width CV 14.1 % (11.6-14.6); RBC Distribution Width SD 45.5 fl (35.1-43.9); Red Blood Count 3.52 M/mm3 (4.6-6.2); White Blood Count 7.1 K/mm3 (4.4-11.0)
[2023-11-10] MEDS: Oxycodone/Apap 5/325 Tablet PO (10:07)
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
--- NOTE | 2023-11-10 10:50 | NURSING ---
Transport to unit to pickup pt.
== END 2023-11-10 11:03 | disposition skilled nursing facility (03) | DRG 559 ==
PROVIDERS: Internal Medicine; Admitting Provider Family Medicine Geriatric Medicine; Visit Provider Family Medicine Geriatric Medicine
DX: S22.42XD Multiple fractures of ribs, left side, subsequent encounter for fracture with routine healing (principal); J93.0 Spontaneous tension pneumothorax; F33.9 Major depressive disorder, recurrent, unspecified; I10 Essential (primary) hypertension; F32.A Depression, unspecified; E78.5 Hyperlipidemia, unspecified; K21.9 Gastro-esophageal reflux disease without esophagitis; F41.9 Anxiety disorder, unspecified; G47.33 Obstructive sleep apnea (adult) (pediatric); S82.402E Unspecified fracture of shaft of left fibula, subsequent encounter for open fracture type I or II with routine healing; S82.872E Displaced pilon fracture of left tibia, subsequent encounter for open fracture type I or II with routine healing; S06.6XAD Traumatic subarachnoid hemorrhage with loss of consciousness status unknown, subsequent encounter; Z87.891 Personal history of nicotine dependence; N40.0 Benign prostatic hyperplasia without lower urinary tract symptoms; V29.99XD Rider (driver) (passenger) of other motorcycle injured in unspecified traffic accident, subsequent encounter; S27.0XXD Traumatic pneumothorax, subsequent encounter; S42.102D Fracture of unspecified part of scapula, left shoulder, subsequent encounter for fracture with routine healing; S42.002D Fracture of unspecified part of left clavicle, subsequent encounter for fracture with routine healing; S36.039D Unspecified laceration of spleen, subsequent encounter; Z79.899 Other long term (current) drug therapy
CPT/HCPCS: 36415; 80053; 81001; 82962; 83735; 84100; 85025; 85027; 87077; 87086; 87088; 87186; 92507; 92523; 92526; 92610; 94668; 97110; 97116; 97129; 97130; 97162; 97167; 97530; 97535; 97542; 97802; 99252; G0463

== ENCOUNTER → 2024-12-11 | Outpatient (CLI) | payer MEDICARE, OTHER, SELFPAY | END | disposition home or self-care (01) | PROVIDERS: Referring Provider Urology; Visit Provider Urology | DX: N20.1 Calculus of ureter (principal) | CPT/HCPCS: 87086 ==

== ENCOUNTER → 2025-02-07 | Outpatient (CLI) | payer MEDICARE, OTHER, SELFPAY ==
[2025-02-07 11:29] LABS: PTHIN 35 pg/mL (11-61)
[2025-02-07 12:03] LABS: ALB/GLOB Ratio 1.7 RATIO (0.9-2.4); AST(SGOT) 19 U/L (<=37); Alanine Aminotransfer ALT/SGPT 19 U/L (<=46); Albumin, Serum 4.5 g/dL (3.4-4.8); Alkaline Phosphatase 114 U/L (40-129); Anion Gap 11 (5-15); BUN 21 mg/dL (4-19); BUN/Creat Ratio 22.2 RATIO (10-20); Calcium,Total 9.7 mg/dL (7.6-11.0); Carbon Dioxide 27.9 mmol/L (21.0-32.0); Chloride 102 mmol/L (98-108); Creatinine, Serum 0.97 mg/dL (0.70-1.20); EST Glomerular Filtration Rate 84 (>60); Globulin 2.7 g/dL (2.2-4.2); Glucose 120 mg/dL (70-99); Magnesium 2.2 mg/dL (1.5-2.2); Phosphorus 2.7 mg/dL (2.7-4.5); Potassium 3.9 mmol/L (3.3-5.1); Protein, Total 7.1 g/dL (5.9-8.4); Sodium Level 141 mmol/L (133-145); Total Bilirubin 0.97 mg/dL (0.00-1.30)
== END | disposition home or self-care (01) ==
LOC: LAB 09:48
PROVIDERS: Referring Provider Nurse Practitioner; Visit Provider Nurse Practitioner
DX: N20.0 Calculus of kidney (principal)
CPT/HCPCS: 36415; 80053; 83735; 83970; 84100

== ENCOUNTER → 2025-02-11 | Outpatient (CLI) | payer MEDICARE, OTHER, SELFPAY ==
[2025-02-11 21:57] LABS: Urine Chloride 52 mmol/L (Not Establ.); Urine Potassium 46.3 mmol/L (Not Establ.); Urine Sodium 76 mmol/L (Not Establ.)
[2025-02-12 11:08] LABS: Uric Acid, 24Ur 628.5 mg/24 hr (136.1-771.1); Uric Acid, Ur 41.9 mg/dL (Not Estab.)
[2025-02-12 13:39] LABS: (24 HR) Urine Calcium 124.5 mg/24 HR (42.0-353.0); 24HR UR TOTAL VOLUME 1500 ml; 24Hr.Lytes Total Volume 1500 mL; Calcium Urine pH Range 1; Sodium 24 HR UR 114 mmol/24h (40-220); Urine Calcium (Random) 8.3 mg/dL (Not Estab.); Urine Chloride / 24 Hours 78 mmol/24h (110-250); Urine Potassium/ 24 Hours 69.5 mmol/24h (25-125)
== END | disposition home or self-care (01) ==
LOC: LAB 10:02 → LABSPEC 10:03
PROVIDERS: Referring Provider Nurse Practitioner; Visit Provider Nurse Practitioner
DX: N20.0 Calculus of kidney (principal)
CPT/HCPCS: 82340; 82436; 84133; 84300; 84560

== ENCOUNTER → 2025-02-12 | Outpatient (CLI) | payer MEDICARE, OTHER, SELFPAY ==
[2025-02-15 15:08] LABS: Citric Acid, 24Ur 875 mg/24 hr (320-1240); Citric Acid, Ur 673 mg/L (Undefined)
== END | disposition home or self-care (01) ==
LOC: LAB 11:22
PROVIDERS: Visit Provider Urology
DX: Z01.812 Encounter for preprocedural laboratory examination (principal); N20.0 Calculus of kidney
CPT/HCPCS: 81050; 82507

== ENCOUNTER → 2025-05-09 | Outpatient (CLI) | payer MEDICARE, OTHER, SELFPAY ==
[2025-05-09 10:07] LABS: PSA,Total - Annual Screen 2.16 ng/mL (0.02-4.00)
== END | disposition home or self-care (01) ==
LOC: LAB 08:13
PROVIDERS: Referring Provider Urology; Visit Provider Urology
DX: Z12.5 Encounter for screening for malignant neoplasm of prostate (principal)
CPT/HCPCS: 36415; 84153; G0103